=== PATIENT | male | born 1965 | race Caucasian/White ===

== ENCOUNTER 2018-12-17 08:21 | Day surgery (SDC) | payer MEDICAID ==
[~2018-12-17 08:21] MED LIST: Carbachol 0.01% IO ONE; Chondroitin/Hyaluronate Opth Syringe KIT (0.55 ml-0.5 ml) IO ONE; Cyclopentolate 1% Opth (2 ml) OS SCH; Hyaluronidase Human, Recombi 150 U/ML VIAL ONE; Ketorolac Tromethamine 0.5% Opth Soln (3 ml) OS SCH; Lactated Ringer's 500 ML IV ONE; Lidocaine Hydrochloride 10 ML INJ ONE; Ofloxacin 0.3% Ophth Soln OS SCH; Phenylephrine 2.5% Opht Soln OS SCH; Povidone Iodine Ophthalmic 5% Soln ONE; Tetracaine 0.5% Ophth (OR ONLY) ONE; Tobramycin/Dexamethasone (Tobradex) Opth Sol (2.5 ml) ONE; Tropicamide 1% Opht SOLUTION OS SCH
[2018-12-17] MEDS ORDERED: Lactated Ringer's 500 ML IV ONE (09:50)
[2018-12-17 10:07] VITALS: O2SAT 100; BMI 25.7
[2018-12-17] MEDS ORDERED: Propofol 10 mg/ml Inj (20 ML) ONE (11:57)
[2018-12-17] MEDS: Tobramycin/Dexamethasone OPHT OINT ONE ×2 (12:14→12:25)
[2018-12-17] MEDS ORDERED: acetaZOLAMIDE 500 mg SR Cap PO ONE (12:30)
[2018-12-17 12:48] VITALS: PULSE 81
[2018-12-17 15:33] VITALS: BP 149/86
[2018-12-17 15:34] VITALS: RESP 18; TEMP 97.9
--- NOTE | 2018-12-18 04:34 | OP ---
PROCEDURE DATE: 12/17/2018 PREOPERATIVE DIAGNOSIS: Cataract left eye. POSTOPERATIVE DIAGNOSIS: Cataract left eye. OPERATIVE PROCEDURE: Cataract extraction with implant, left eye. ANESTHESIA TYPE: Local, standby. COMPLICATIONS: None. PROCEDURE: Local anesthesia was achieved using a mixture of 1% lidocaine and Amphadase. The patient was then prepped and draped in the usual sterile fashion for ophthalmic surgery. Betadine drops were placed into the eye. A lid speculum was used and a sideport incision was made using a 15 degree blade. Viscoelastic was used to fill the anterior chamber and a 2.7 millimeter slit blade was used to create a surgical opening. Additional viscoelastic was placed into the eye and a capsulorrhexis was performed. Hydrodissection and delineation were then carried out. Phacoemulsification of the nucleus was performed with ease and cortical cleanup was achieved without difficulty. The capsular bag was refilled using viscoelastic and a posterior chamber lens was inserted through the existing wound and placed into the capsular bag and easily centered. All viscoelastic was then aspirated from the eye and Miochol was instilled for good symmetric pupillary constriction. The sideport wound was hydrated as necessary and a good watertight closure was observed at the conclusion of the case. A TobraDex soaked collagen shield was then placed over the eye. The lid speculum was removed. TobraDex ointment was placed onto the eye and a patch and shield were placed. The patient tolerated the procedure well. Pablo Hernandez MD
== END 2018-12-17 13:25 | disposition home or self-care (01) ==
LOC: C.SDS 08:21
PROVIDERS: ATTEND Ophthalmology
DX: H26.9 Unspecified cataract (principal)
CPT/HCPCS: 66984; 82948; J2704; J3470; J7120; V2632